=== PATIENT | male | born 1975 | race African-American/Black ===

== ENCOUNTER 2018-01-07 10:58 | Emergency (ER) | payer OTHER ==
[~2018-01-07] VITALS: Ht 177.8 cm; Wt 101.6 kg
[2018-01-07] MEDS ORDERED: GILTUSS TR TAB1 EACH PO (13:52)
== END 2018-01-07 14:31 | disposition home or self-care (01) ==
LOC: ER 10:58
DX: R50.9 Fever, unspecified (principal); J10.1 Influenza due to other identified influenza virus with other respiratory manifestations